=== PATIENT | female | born 1980 | race Caucasian/White ===

== ENCOUNTER 2022-01-04 10:05 | Emergency (ER) | payer MEDICARE, MEDICAID ==
[~2022-01-04] VITALS: Ht 162 cm; Wt 87.0 kg
[2022-01-04] MEDS ORDERED: ONDANSETRON 4 MG/2 ML (SDV) Z0FRAN IVP ONE (10:30)
[2022-01-04] MEDS ORDERED: methylPREDNISolone 125 MG (Solu-MEDROL) VIAL IVP ONE (10:30)
[2022-01-04] MEDS ORDERED: LACTATED RINGERS 1,000 ML IV ONE (10:30)
[2022-01-04 10:48] LABS: BASOPHILS % (AUTO) 0 % (0-10); EOSINOPHILS # (AUTO) 0.1 10^3/uL (0.0-0.3); EOSINOPHILS % (AUTO) 1 % (0-10); HEMATOCRIT 40 % (35-52); HEMOGLOBIN 12.9 g/dL (11.5-16.0); LYMPHOCYTES # (AUTO) 0.8 10^3/uL (1.0-4.0); LYMPHOCYTES % (AUTO) 7 % (12-44); MEAN CORPUSCULAR HEMOGLOBIN 27 pg (25-34); MEAN CORPUSCULAR HGB CONC 32 g/dL (32-36); MEAN CORPUSCULAR VOLUME 85 fL (80-99); MONOCYTES % (AUTO) 9 % (0-12); NEUTROPHILS # (AUTO) 9.2 10^3/uL (1.8-7.8); NEUTROPHILS % (AUTO) 82 % (42-75); PLATELET COUNT 357 10^3/uL (130-400); WHITE BLOOD COUNT 11.1 10^3/uL (4.3-11.0)
[2022-01-04 11:06] LABS: CALCIUM 9.3 MG/DL (8.5-10.1)
[2022-01-04 11:07] LABS: EOSINOPHILS % (MANUAL) 2 %; LYMPHOCYTES % (MANUAL) 8 %; MONOCYTES % (MANUAL) 9 %; NEUTROPHILS % (MANUAL) 81 %; RBC MORPH NORMAL
[2022-01-04 11:10] LABS: CREATININE SERUM 0.82 MG/DL (0.60-1.30)
--- NOTE | 2022-01-04 11:17 | Diagnostic Imaging Report ---
EXAMINATION: Chest radiograph, portable AP view. DATE: 01/04/2022 10:45 AM INDICATION: 41-year-old female, cough. COMPARISON: None. FINDINGS: Heart size and mediastinal contours are unremarkable. There is no identified pneumothorax. There is no large pleural effusion. There is no identified focal airspace consolidation. IMPRESSION: 1. No identified acute cardiopulmonary abnormality. Dictated by: Dictated on workstation # [id number]
[2022-01-04] MEDS ORDERED: RX-OSELTAMIVIR 75 MG (TAMIFLU) BOX OF 10 PO STA (12:27)
--- NOTE | 2022-01-04 12:31 | ED General ---
General Chief Complaint: General Problems/Pain Stated Complaint: ASTHMA Nursing Triage Note: ARRIVED VIA EMS FROM THE [facility] WITH COMPLAINTS OF NOT FEELING WELL AND BEING TIRED. UPON EMS ARRIVAL SHE WAS GIVING HERSELF A BREATHING TREATMENT THUR A NEBULIZER THAT IS COMMUNITY SHARED. PT HAVING A HARD TIME STAYING AWAKE ET FALLS ASLEEP QUICKLY. Source of Information: Patient Exam Limitations: No Limitations History of Present Illness Date Seen by Provider: Jan 04, 2022 Allergies and Home Medications Allergies Coded Allergies: Sulfa (Sulfonamide Antibiotics) (Verified Allergy, Severe, RASH, 01/04/22) codeine (Verified Allergy, Severe, RASH, 01/04/22) strawberry (Verified Allergy, Severe, RASH, 01/04/22) ibuprofen (Verified Adverse Reaction, Intermediate, Shortness of Breath, 01/04/22) Causes asthma exacerbation Past Wrraqwl-Gkhvxi-Qzfrim Hx Patient Social History Smoking Status: Current Everyday Smoker Substance use?: No Alcohol Use?: No Immunizations Up To Date Second COVID19 Vaccination Herminio: UNKNOWN COVID19 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 oz. kg; 33.00 BMI Method: Progress/Results/Core Measures Suspected Sepsis SIRS Temperature: Pulse: 109 Respiratory Rate: 16 Laboratory Tests 01/04/22 10:35: White Blood Count 11.1H Blood Pressure 125 /84 Mean: 98 Laboratory Tests 01/04/22 10:35: Creatinine 0.82, Platelet Count 357 Results/Orders Lab Results Laboratory Tests Test 01/04/22 10:15 01/04/22 10:35 Range/Units Influenza Type A (RT-PCR) Detected H Not Detecte Influenza Type B (RT-PCR) Not Detected Not Detecte SARS-CoV-2 RNA (RT-PCR) Not Detected Not Detecte White Blood Count 11.1 H 4.3-11.0 10^3/uL Red Blood Count 4.71 3.80-5.11 10^6/uL Hemoglobin 12.9 11.5-16.0 g/dL Hematocrit 40 35-52 % Mean Corpuscular Volume 85 80-99 fL Mean Corpuscular Hemoglobin 27 25-34 pg Mean Corpuscular Hemoglobin Concent 32 32-36 g/dL Red Cell Distribution Width 15.6 H 10.0-14.5 % Platelet Count 357 130-400 10^3/uL Mean Platelet Volume 9.0 9.0-12.2 fL Immature Granulocyte % (Auto) 0 % Neutrophils (%) (Auto) 82 H 42-75 % Lymphocytes (%) (Auto) 7 L 12-44 % Monocytes (%) (Auto) 9 0-12 % Eosinophils (%) (Auto) 1 0-10 % Basophils (%) (Auto) 0 0-10 % Neutrophils # (Auto) 9.2 H 1.8-7.8 10^3/uL Lymphocytes # (Auto) 0.8 L 1.0-4.0 10^3/uL Monocytes # (Auto) 1.0 0.0-1.0 10^3/uL Eosinophils # (Auto) 0.1 0.0-0.3 10^3/uL Basophils # (Auto) 0.0 0.0-0.1 10^3/uL Immature Granulocyte # (Auto) 0.0 0.0-0.1 10^3/uL Neutrophils % (Manual) 81 % Lymphocytes % (Manual) 8 % Monocytes % (Manual) 9 % Eosinophils % (Manual) 2 % Blood Morphology Comment NORMAL Sodium Level 133 L 135-145 MMOL/L Potassium Level 4.0 3.6-5.0 MMOL/L Chloride Level 103 98-107 MMOL/L Carbon Dioxide Level 18 L 21-32 MMOL/L Anion Gap 12 5-14 MMOL/L Blood Urea Nitrogen 6 L 7-18 MG/DL Creatinine 0.82 0.60-1.30 MG/DL Estimat Glomerular Filtration Rate 93 BUN/Creatinine Ratio 7 Glucose Level 116 H 70-105 MG/DL Calcium Level 9.3 8.5-10.1 MG/DL C-Reactive Protein High Sensitivity 1.25 H 0.00-0.50 MG/DL Serum Test, Qualitative NEGATIVE NEGATIVE My Orders Orders - MAUDE REYNA MD Basic Metabolic Panel (01/04/22 10:17) Cbc With Automated Diff (01/04/22 10:17) Hs C Reactive Protein (01/04/22 10:17) Hcg,Qualitative Serum (01/04/22 10:17) Chest 1 View, Ap/Pa Only (01/04/22 10:17) Ed Iv/Invasive Line Start (01/04/22 10:17) Lactated Ringers (Lr 1000 Ml Iv Solution (01/04/22 10:30) Ondansetron Injection (Zofran Injectio (01/04/22 10:30) Methylprednisolone Sod Succ (Solu-Medrol (01/04/22 10:30) Covid 19 Inhouse Test (01/04/22 10:17) Influenza A And B By Pcr (01/04/22 10:17) Manual Differential (01/04/22 10:35) Rx-Oseltamivir Caps (Rx-Tamiflu Caps) (01/04/22 12:27) Medications Given in ED Current Medications Medications Dose Ordered Sig/Lindsay Route Start Time Stop Time Status Last Admin Dose Admin Lactated Ringer's 1,000 ml @ 0 mls/hr Q0M ONCE IV 01/04/22 10:30 01/04/22 10:31 DC 01/04/22 10:40 1,000 MLS/HR Methylprednisolone Sodium Succinate 125 mg ONCE ONCE IVP 01/04/22 10:30 01/04/22 10:31 DC 01/04/22 10:40 125 MG Ondansetron HCl 8 mg ONCE ONCE IVP 01/04/22 10:30 01/04/22 10:31 DC 01/04/22 10:40 8 MG Vital Signs/I&O 01/04/22 10:05 Temp 37.4 Pulse 109 Resp 16 B/P (MAP) 125/84 (98) Pulse Ox 96 O2 Delivery Room Air Capillary Refill : Less Than 3 Seconds Blood Pressure Mean: 98 Departure Impression Primary Impression: Influenza A Additional Impression: Asthma exacerbation Qualified Codes: J45.901 - Unspecified asthma with (acute) exacerbation Disposition: HOME, SELF-CARE Condition: Improved Departure-Patient Inst. Decision time for Depature: 12:29 Referrals: NO,LOCAL PHYSICIAN (PCP/Family) Primary Care Physician Patient Instructions: Asthma, Adult ED, Flu, Quitting Smoking ED Add. Discharge Instructions: Complete the entire 10 doses of Tamiflu, even if you are feeling better. You may take Tylenol (acetaminophen) up to 1000 mg every 6 hours as needed for discomfort or fever. Use your inhaled medications as previously directed. Work toward quitting smoking and do not inhale any smoke or vapor while you are ill with the flu. You may use a nicotine supplement such as lozenges, patches, or gum. Take prednisone as prescribed. Take early in the day with food or milk. This will help prevent sleep disturbance and upset stomach. Return to care if you have worsening symptoms despite following these instructions. All discharge instructions reviewed with patient and/or family. Voiced understanding. Scripts Prednisone (Prednisone) 20 Mg Tab 40 MG PO DAILY, #6 TAB 0 Refills Prov: MAUDE REYNA MD 01/04/22 MAUDE REYNA MD Jan 04, 2022 12:31
[2022-01-04] MEDS ORDERED: PRD20T PO (12:32)
[2022-01-04 12:47] VITALS: BP 117/78
== END 2022-01-04 12:47 | disposition home or self-care (01) ==
LOC: ER 10:12
DX: J10.1 Influenza due to other identified influenza virus with other respiratory manifestations (principal); J45.901 Unspecified asthma with (acute) exacerbation; F17.200 Nicotine dependence, unspecified, uncomplicated; Z20.822 Contact with and (suspected) exposure to COVID-19
CPT/HCPCS: 36415; 71045; 80048; 84703; 85007; 85027; 86141; 87636; 99283

== ENCOUNTER 2022-06-02 19:10 | Emergency (ER) | payer MEDICARE, MEDICAID ==
[~2022-06-02 19:10] MED LIST: PRD20T PO
--- NOTE | 2022-06-02 19:34 | ED Integumentary General ---
General Chief Complaint: Skin/Wound Problems Stated Complaint: BITE ON RIGHT ARM Nursing Triage Note: PT AMB TO [facility] 6 WITH C/O POSS BITE TO R FOREARM SOMETIME TODAY. PT STATES IT IS SWOLLEN AND WAS RED EARLIER BUT REDNESS WENT DOWN AFTER BENADRYL AT 3PM Source: patient Exam Limitations: no limitations History of Present Illness Date Seen by Provider: Jun 02, 2022 Time Seen by Provider: 19:21 Initial Comments 41-year-old female presents to the ED with concerns of swelling of right lower arm near her elbow. States that she noticed it a few hours ago. Reports she initially had some redness on her arm. She took some Benadryl which improved the redness. Denies itching of the arm. Reports some pain at the area of swelling. Denies any known injury to the area. She is concerned that she was bit by a spider. She denies fevers, or any other concerns. Allergies and Home Medications Allergies Coded Allergies: Sulfa (Sulfonamide Antibiotics) (Verified Allergy, Severe, RASH, 01/04/22) codeine (Verified Allergy, Severe, RASH, 01/04/22) strawberry (Verified Allergy, Severe, RASH, 01/04/22) ibuprofen (Verified Adverse Reaction, Intermediate, Shortness of Breath, 01/04/22) Causes asthma exacerbation Patient Home Medication List Home Medication List Reviewed: Yes Prednisone (Prednisone) 20 Mg Tab, 40 MG PO DAILY Prescribed by: MAUDE PAUL on 01/04/22 1232 Review of Systems Review of Systems Constitutional: no symptoms reported Skin: change in color, other (Swelling) Past Jizoshu-Fdzlxc-Duqdaw Hx Immunizations Up To Date Second COVID19 Vaccination Herminio: UNKNOWN Past Medical History Surgeries: Yes Appendectomy Respiratory: No Cardiac: No Neurological: No Last Menstrual Period: May 26, 2022 Reproductive Disorders: No Genitourinary: No Gastrointestinal: No Musculoskeletal: No Endocrine: No HEENT: No Cancer: No Psychosocial: Yes Anxiety, Depression Integumentary: No Physical Exam Vital Signs Vital Signs - First Documented 06/02/22 19:21 Temp 36.6 Pulse 76 Resp 16 B/P (MAP) 108/81 (90) Capillary Refill : General Appearance: WD/WN, no apparent distress Neck: supple, normal inspection Cardiovascular: regular rate, rhythm Respiratory: lungs clear, normal breath sounds, no respiratory distress, no accessory muscle use Extremities: normal range of motion, normal inspection Skin: normal color, warm/dry, other (No area of swelling noted, no erythema, no abscess noted to right lower arm) Skin Problem Location: upper extremities Progress/Results/Core Measures Results/Orders Vital Signs/I&O 06/02/22 06/02/22 19:21 19:40 Temp 36.6 36.6 Pulse 76 76 Resp 16 16 B/P (MAP) 108/81 (90) 108/81 Blood Pressure Mean: 90 Progress Progress Note : Time: 19:33 Progress Note Patient seen and evaluated, resting comfortably in bed, no acute distress. I do not see any area of swelling, erythema, open areas, or abscess to right lower arm. Discussed with patient that this may have been an allergic reaction, since the Benadryl helped the redness. Patient denies any itching to the area though. Patient given education on monitoring for signs of an abscess like circular area of redness, elevation of the area, or drainage. Patient verbalized understanding. Discharge reviewed and return precautions provided. Departure Impression Primary Impression: Skin complaints Disposition: 01 HOME, SELF-CARE Condition: Stable Departure-Patient Inst. Decision time for Depature: 19:36 Referrals: STELLA KWONG MD (PCP/Family) Primary Care Physician Patient Instructions: Skin Abscess Add. Discharge Instructions: Monitor for signs of spider bite/abscess like circular area of redness, elevation of the skin, drainage. Return if you develop the symptoms, or any other new, concerning, or worsening symptoms. All discharge instructions reviewed with patient and/or family. Voiced understanding. 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
[2022-06-02 19:40] VITALS: BP 108/81
== END 2022-06-02 19:41 | disposition home or self-care (01) ==
LOC: EDUNIT# 19:10 → ER 19:14
DX: L98.9 Disorder of the skin and subcutaneous tissue, unspecified (principal)
CPT/HCPCS: 99281